=== PATIENT | female | born 1990 | race Caucasian/White ===

== ENCOUNTER 2020-01-19 15:05 | Emergency (ER) | payer BC, OTHER ==
[2020-01-19] MEDS ORDERED: Albuterol/Ipratropium 3.0-0.5 MG/3 ML Neb Soln NEB ONE (15:08)
[2020-01-19] MEDS ORDERED: LORazepam 1 MG Tab PO ONE (15:27)
[2020-01-19] MEDS ORDERED: LORazepam 1 MG Tab ONE (15:28)
--- NOTE | 2020-01-19 15:36 | EDM.PDOC ---
ED HPI GENERAL MEDICAL PROBLEM - General Chief Complaint: Respiratory Problem Stated Complaint: TROUBLE BREATHING AND PAIN IN RT SIDE Time Seen by Provider: 01/19/20 15:07 Source of Information: Reports: Patient History Limitations: Reports: No Limitations - History of Present Illness INITIAL COMMENTS - FREE TEXT/NARRATIVE: HISTORY AND PHYSICAL: History of present illness: Patient is a 29-year-old female who presents to the ED today with concern of right rib pain that makes her feel like she cannot take a deep breath that started this afternoon. Patient states she was on her way back to work when the symptoms started. Patient states she does have a history of anxiety and feels like her anxiety has kicked in as she is now worrying about her symptoms. Patient states she did have a diagnosis of asthma as a child but has not had issues with this since she was young. Patient denies any other health history of any other symptoms or concerns. Patient denies fever, chills, chest pain, or cough. Denies headache, neck stiff ness, change in vision, syncope, or near syncope. Denies nausea, vomiting, abdominal pain, diarrhea, constipation, or dysuria. Has not noted any blood in urine or stool. Patient has been eating and drinking appropriately. Review of systems: As per history of present illness and below otherwise all systems reviewed and negative. Past medical history: As per history of present illness and as reviewed below otherwise noncontributory. Surgical history: As per history of present illness and as reviewed below otherwise noncontributory. Social history: See social history for further information Family history: As per history of present illness and as reviewed below otherwise noncontributory. Physical exam: General: Patient is alert, oriented, and in no acute distress. Patient sitting on exam table, tearful on exam and anxious appearing. HEENT: Atraumatic, normocephalic, pupils equal and reactive bilaterally, negative for conjunctival pallor or scleral icterus, mucous membranes moist, TMs normal bilaterally, throat clear, neck supple, nontender, trachea midline. No drooling or trismus noted. No meningeal signs. No hot potato voice noted. Lungs: Clear to auscultation, breath sounds equal bilaterally, mild tenderness to palpation of the general anterior right sided ribs. Heart: S1S2, regular rate and rhythm without overt murmur Abdomen: Soft, nondistended, nontender. Negative for masses or hepatosplenomegaly. Negative for costovertebral tenderness. Pelvis: Stable nontender. Genitourinary: Deferred. Rectal: Deferred. Skin: Intact, warm, dry. No lesions or rashes noted. Extremities: Atraumatic, negative for cords or calf pain. Neurovascular unremarkable. Neuro: Awake, alert, oriented. Cranial nerves II through XII unremarkable. Cerebellum unremarkable. Motor and sensory unremarkable throughout. Exam nonfocal. Notes: Discussed importance for follow-up with a primary care provider. Voices understanding and is agreeable to plan of care. Denies any further questions or concerns at this time. Diagnostics: CBC, CMP, UA, Serum hcg, Ddimer, CXR, Trop, lipase Therapeutics: Ativan, Toradol Prescription: None Impression: Right sided rib pain Plan: 1. Rest, ice, elevate the affected area. You can apply ice 15 minutes on, 15 minutes off. 2. Tylenol and/or Ibuprofen as directed for pain management or discomfort. 3. Follow up with the primary care provider as discussed. Return to the ED as needed and as discussed. Definitive disposition and diagnosis as appropriate pending reevaluation and review of above. Generalized Pain Score (Numeric/FACES): 10 - Related Data Allergies Allergy/AdvReac Type Severity Reaction Status Date / Time metoclopramide [From Reglan] AdvReac Other Verified 01/19/20 15:08 Home Meds: Home Meds . [No Known Home Meds] 01/19/20 [History] Past Medical History HEENT History: Reports: Impaired Vision Cardiovascular History: Reports: None Respiratory History: Reports: Asthma Gastrointestinal History: Reports: None Genitourinary History: Reports: None INSPECTOR MATERIAL DISPOSITION History: Reports: Neurological History: Reports: None Psychiatric History: Reports: Anxiety Endocrine/Metabolic History: Reports: None Hematologic History: Reports: None Immunologic History: Reports: None Oncologic (Cancer) History: Reports: None Dermatologic History: Reports: None - Infectious Disease History Infectious Disease History: Reports: None - Past Surgical History Head Surgeries/Procedures: Reports: None HEENT Surgical History: Reports: Oral Surgery Female Surgical History: Reports: Section Musculoskeletal Surgical History: Reports: Other (See Below) Social & Family History - Family History Family Medical History: Noncontributory - Caffeine Use Caffeine Use: Reports: Energy Drinks, Soda - Recreational Drug Use Recreational Drug Use: No - Living Situation & Occupation Living situation: Reports: Single, Alone Occupation: Employed (Restaurant) ED ROS GENERAL - Review of Systems Review Of Systems: Comprehensive ROS is negative, except as noted in HPI. ED EXAM, GENERAL - Physical Exam Exam: See Below (see dictation) Course - Vital Signs Last Recorded V/S: Last Vital Signs Temp 97.9 F 01/19/20 15:09 Pulse 107 H 01/19/20 15:09 Resp 24 H 01/19/20 15:09 BP 121/82 01/19/20 15:09 Pulse Ox 100 01/19/20 15:09 - Orders/Labs/Meds Orders: Active Orders 24 hr Category Date Time Status EKG Documentation Completion [RC] STAT Care 01/19/20 15:16 Active RT Aerosol Therapy [RC] ASDIRECTED Care 01/19/20 15:08 Active UA RFX ELHAM AND CULT IF INDIC [URIN] Stat Lab 01/19/20 15:16 Ordered Labs: Laboratory Tests 01/19/20 01/19/20 01/19/20 Range/Units 15:26 15:26 15:26 WBC 9.40 (4.0-11.0) K/uL RBC 4.89 (4.30-5.90) M/uL Hgb 14.7 (12.0-16.0) g/dL Hct 44.1 (36.0-46.0) % MCV 90.2 (80.0-98.0) fL MCH 30.1 (27.0-32.0) pg MCHC 33.3 (31.0-37.0) g/dL RDW Std Deviation 42.9 (28.0-62.0) fl RDW Coeff of Mica 13 (11.0-15.0) % Plt Count 229 (150-400) K/uL MPV 9.70 (7.40-12.00) fL Neut % (Auto) 71.0 (48.0-80.0) % Lymph % (Auto) 14.9 L (16.0-40.0) % Payette % (Auto) 11.2 (0.0-15.0) % Eos % (Auto) 2.7 (0.0-7.0) % Baso % (Auto) 0.2 (0.0-1.5) % Neut # (Auto) 6.7 H (1.4-5.7) K/uL Lymph # (Auto) 1.4 (0.6-2.4) K/uL Payette # (Auto) 1.1 H (0.0-0.8) K/uL Eos # (Auto) 0.3 (0.0-0.7) K/uL Baso # (Auto) 0.0 (0.0-0.1) K/uL Nucleated RBC % 0.0 /100WBC Nucleated RBCs # 0 K/uL D-Dimer, Quantitative < 0.19 (0.0-0.50) mg/L FEU Sodium 140 (136-145) mmol/L Potassium 3.6 (3.5-5.1) mmol/L Chloride 103 (98-107) mmol/L Carbon Dioxide 27.4 (21.0-32.0) mmol/L BUN 16 (7.0-18.0) mg/dL Creatinine 0.9 (0.6-1.0) mg/dL Est Cr Clr Drug Dosing 78.21 mL/min Estimated GFR (MDRD) > 60.0 ml/min Glucose 129 H (74-106) mg/dL Calcium 9.2 (8.5-10.1) mg/dL Total Bilirubin 0.5 (0.2-1.0) mg/dL AST 16 (15-37) IU/L ALT 30 (14-63) IU/L Alkaline Phosphatase 86 (46-116) U/L Troponin I < 0.050 (0.000-0.056) ng/mL Total Protein 7.8 (6.4-8.2) g/dL Albumin 4.0 (3.4-5.0) g/dL Globulin 3.8 (2.6-4.0) g/dL Albumin/Globulin Ratio 1.1 (0.9-1.6) Lipase 149 (73-393) U/L HCG, Qual (NEG) 01/19/20 Range/Units 15:26 WBC (4.0-11.0) K/uL RBC (4.30-5.90) M/uL Hgb (12.0-16.0) g/dL Hct (36.0-46.0) % MCV (80.0-98.0) fL MCH (27.0-32.0) pg MCHC (31.0-37.0) g/dL RDW Std Deviation (28.0-62.0) fl RDW Coeff of Mica (11.0-15.0) % Plt Count (150-400) K/uL MPV (7.40-12.00) fL Neut % (Auto) (48.0-80.0) % Lymph % (Auto) (16.0-40.0) % Payette % (Auto) (0.0-15.0) % Eos % (Auto) (0.0-7.0) % Baso % (Auto) (0.0-1.5) % Neut # (Auto) (1.4-5.7) K/uL Lymph # (Auto) (0.6-2.4) K/uL Payette # (Auto) (0.0-0.8) K/uL Eos # (Auto) (0.0-0.7) K/uL Baso # (Auto) (0.0-0.1) K/uL Nucleated RBC % /100WBC Nucleated RBCs # K/uL D-Dimer, Quantitative (0.0-0.50) mg/L FEU Sodium (136-145) mmol/L Potassium (3.5-5.1) mmol/L Chloride (98-107) mmol/L Carbon Dioxide (21.0-32.0) mmol/L BUN (7.0-18.0) mg/dL Creatinine (0.6-1.0) mg/dL Est Cr Clr Drug Dosing mL/min Estimated GFR (MDRD) ml/min Glucose (74-106) mg/dL Calcium (8.5-10.1) mg/dL Total Bilirubin (0.2-1.0) mg/dL AST (15-37) IU/L ALT (14-63) IU/L Alkaline Phosphatase (46-116) U/L Troponin I (0.000-0.056) ng/mL Total Protein (6.4-8.2) g/dL Albumin (3.4-5.0) g/dL Globulin (2.6-4.0) g/dL Albumin/Globulin Ratio (0.9-1.6) Lipase (73-393) U/L HCG, Qual NEGATIVE (NEG) Meds: Medications Discontinued Medications Generic Name Dose Route Start Last Admin Trade Name Eden PRN Reason Stop Dose Admin Albuterol/Ipratropium 3 ml 01/19/20 15:08 01/19/20 15:17 Duoneb 3.0-0.5 Mg/3 Ml NEB 01/19/20 15:09 3 ml ONETIME ONE Administration Ketorolac Tromethamine 60 mg 01/19/20 16:01 01/19/20 16:44 Toradol IM 01/19/20 16:02 60 mg ONETIME ONE Administration Lorazepam 1 mg 01/19/20 15:27 01/19/20 15:31 Ativan PO 01/19/20 15:28 1 mg ONETIME ONE Administration Lorazepam Confirm 01/19/20 15:28 01/19/20 15:32 Ativan Administered 01/19/20 15:29 Not Given Dose 1 mg .ROUTE .STK-MED ONE Departure - Departure Time of Disposition: 17:08 Disposition: Home, Self-Care 01 Clinical Impression: Rib pain on right side - Discharge Information Referrals: PCP,Luisobtain [Primary Care Provider] - Forms: ED Department Discharge Additional Instructions: The following information is given to patients seen in the emergency department who are being discharged to home. This information is to outline your options for follow-up care. We provide all patients seen in our emergency department with a follow-up referral. The need for follow-up, as well as the timing and circumstances, are variable depending upon the specifics of your emergency department visit. If you don't have a primary care physician on staff, we will provide you with a referral. We always advise you to contact your personal physician following an emergency department visit to inform them of the circumstance of the visit and for follow-up with them and/or the need for any referrals to a consulting specialist. The emergency department will also refer you to a specialist when appropriate. This referral assures that you have the opportunity for follow-up care with a specialist. All of these measure are taken in an effort to provide you with optimal care, which includes your follow-up. Under all circumstances we always encourage you to contact your private physician who remains a resource for coordinating your care. When calling for follow-up care, please make the office aware that this follow-up is from your recent emergency room visit. If for any reason you are refused follow-up, please contact the [facility] Emergency Department at and asked to speak to the emergency department charge nurse. [facility] Primary [facility] [address] [place] [address] [facility] [address] [place] [id number] 1. Rest, ice, elevate the affected area. You can apply ice 15 minutes on, 15 minutes off. 2. Tylenol and/or Ibuprofen as directed for pain management or discomfort. 3. Follow up with the primary care provider as discussed. Return to the ED as needed and as discussed. Sepsis Event Note - Evaluation Sepsis Screening Result: No Definite Risk - Focused Exam Vital Signs: Vital Signs Temp Pulse Resp BP Pulse Ox 01/19/20 15:09 97.9 F 107 H 24 H 121/82 100 Date Exam was Performed: 01/19/20 Time Exam was Performed: 17:08 - My Orders Last 24 Hours: My Active Orders 01/19/20 15:08 RT Aerosol Therapy [RC] ASDIRECTED 01/19/20 15:16 EKG Documentation Completion [RC] STAT UA RFX ELHAM AND CULT IF INDIC [URIN] Stat - Assessment/Plan Last 24 Hours: My Active Orders 01/19/20 15:08 RT Aerosol Therapy [RC] ASDIRECTED 01/19/20 15:16 EKG Documentation Completion [RC] STAT UA RFX ELHAM AND CULT IF INDIC [URIN] Stat
[2020-01-19] MEDS ORDERED: Iopamidol 612 MG/ML 50 ML SDV IUTERINE STA (15:47)
[2020-01-19] MEDS ORDERED: Ketorolac 60 MG/2 ML SDV IM ONE (16:01)
[2020-01-19 16:04] LABS: BLOOD UREA NITROGEN,BUN 16 mg/dL (7.0-18.0); CARBON DIOXIDE,CO2 27.4 mmol/L (21.0-32.0); CHLORIDE,CL 103 mmol/L (98-107); GLUCOSE RANDOM 129 mg/dL (74-106); LIPASE 149 U/L (73-393); POTASSIUM,K 3.6 mmol/L (3.5-5.1); SODIUM,NA 140 mmol/L (136-145)
--- NOTE | 2020-01-19 17:06 | CR ---
Chest and right ribs: Frontal view of the chest was obtained as well as 4 views of the right ribs. Comparison: No previous study. Heart size and mediastinum are normal. Lungs are clear. No fracture, dislocation or other bony abnormality is seen. Impression: 1. Nothing acute is seen on frontal chest x-ray. 2. No discrete right-sided rib abnormality is appreciated. Diagnostic code #2 Study was dictated in [place] Standard Time
== END 2020-01-19 19:10 | disposition home or self-care (01) ==
LOC: MW.ED 15:05
DX: R07.81 Pleurodynia (principal); J45.909 Unspecified asthma, uncomplicated; Z88.8 Allergy status to other drugs, medicaments and biological substances
CPT/HCPCS: 36415; 71101; 80053; 83690; 84484; 84703; 85025; 85379; 93005; 94640; 96372; 99284; A9270; J1885; J7620-GY